=== PATIENT | female | born 1980 | race Two or more races ===

== ENCOUNTER 2018-07-02 12:20 | Observation (INO) | payer SELFPAY ==
[~2018-07-02] VITALS: Ht 157.5 cm; Wt 82.6 kg
[2018-07-02] MEDS ORDERED: DIPHENHYDRAMINE 50MG/ML VIAL IV NR (13:30)
[2018-07-02] MEDS ORDERED: LACTATED RINGERS 1,000 ML IV SCH (13:30)
[2018-07-02 14:58] LABS: BASOPHILS % 0.4 % (0.0-2.0); EOSINOPHILS % 1.1 % (0.0-5.0); HEMATOCRIT. 34.7 % (36.0-48.0); HEMOGLOBIN. 11.6 g/dL (12.0-16.0); LYMPHOCYTES % 18.1 % (20.0-50.0); MEAN CORPUSCULAR VOLUME 86.5 fL (81.0-99.0); MEAN PLATELET VOLUME 9.4 fl (7.4-10.4); MONOCYTES % 6.3 % (2.0-8.0); NEUTROPHILS % 74.1 % (40.0-76.0); PLATELET 218 x1000/uL (130-400); RED BLOOD CELL COUNT 4.02 mill/uL (4.2-5.4); RED CELL DISTRIBUTION WIDTH 13.2 % (11.6-14.6)
[2018-07-02] MEDS ORDERED: PREN1TAB78 MT (15:29)
== END 2018-07-02 16:20 | disposition home or self-care (01) ==
LOC: ER 12:20 → 8 EST LDRP 12:39
PROVIDERS: ADMIT Specialist; ATTEND Specialist
DX: O26.893 Other specified pregnancy related conditions, third trimester (principal); L29.9 Pruritus, unspecified; Z3A.34 34 weeks gestation of pregnancy
CPT/HCPCS: 36415; 80076; 82239; 85025; 96374; 99281; G0378; J1200; 96360; 96361; 96372; J7120

== ENCOUNTER 2018-07-23 02:56 | Inpatient (IN) | payer MEDICAID ==
[~2018-07-23] VITALS: Ht 162.6 cm; Wt 75.7 kg
[~2018-07-23 02:56] MED LIST: PREN1TAB78 MT
[2018-07-23] MEDS ORDERED: LIDOCAINE HCL 1% 20ML VIAL (Pyxis) INJ INFIL SCH (03:45)
[2018-07-23] MEDS ORDERED: NALOXONE HCL 0.4 MG/ML 1ML VIAL IM PRN (03:45)
[2018-07-23] MEDS ORDERED: BUTORPHANOL TARTRATE 2 MG/ML VIAL IV PRN (03:45)
[2018-07-23] MEDS ORDERED: METHYLERGONOVINE MALEATE 0.2 MG/ML IM PRN ×2 (03:45→16:00)
[2018-07-23] MEDS ORDERED: PENICILLIN G POTASSIUM 5 MMU in DEXT 5% WATER 100 ML IV SCH (04:00)
[2018-07-23] MEDS: LACTATED RINGERS 1,000 ML IV SCH ×2 (04:26→06:00)
[2018-07-23 04:51] LABS: BASOPHILS % 0.5 % (0.0-2.0); EOSINOPHILS % 1.1 % (0.0-5.0); HEMATOCRIT. 35.8 % (36.0-48.0); LYMPHOCYTES % 16.7 % (20.0-50.0); MEAN CORPUSCULAR HEMOGLOBIN 28.8 pg (28.0-32.0); MEAN CORPUSCULAR VOLUME 85.7 fL (81.0-99.0); MONOCYTES % 5.7 % (2.0-8.0); PLATELET 162 x1000/uL (130-400); RED BLOOD CELL COUNT 4.17 mill/uL (4.2-5.4); RED CELL DISTRIBUTION WIDTH 14.1 % (11.6-14.6)
[2018-07-23 04:59] LABS: INR 0.9; PARTIAL THROMBOPLASTIN TIME 25.2 sec (23.4-31.0)
[2018-07-23] MEDS ORDERED: ROPIVACAINE HCL/PF EPIDURAL 200 ML EPI SCH (05:00)
[2018-07-23 05:07] LABS: *AMPHETAMINES SCREEN URINE NEGATIVE (NEGATIVE); *BARBITURATES SCREEN URINE NEGATIVE (NEGATIVE); *BENZODIAZEPINES SCREEN URINE NEGATIVE (NEGATIVE); *COCAINE SCREEN URINE NEGATIVE (NEGATIVE); METHADONE URINE SCREEN NEGATIVE (NEGATIVE)
[2018-07-23 05:08] LABS: CANNABINOID URINE SCREEN NEGATIVE (NEGATIVE); OPIATES URINE SCREEN NEGATIVE (NEGATIVE); PHENCYCLIDINE URINE SCREEN NEGATIVE (NEGATIVE)
[2018-07-23 05:16] LABS: CLARITY URINE CLEAR (CLEAR); COLOR URINE YELLOW (YELLOW); KETONES URINE NEGATIVE (NEGATIVE); LEUKOCYTE ESTERASE URINE 1+ (NEGATIVE); NITRITE URINE NEGATIVE (NEGATIVE); OCCULT BLOOD URINE 2+ (NEGATIVE); PROTEIN URINE NEGATIVE (NEGATIVE); SPECIFIC GRAVITY URINE 1.014 (1.005-1.030)
[2018-07-23 05:29] LABS: PROTHROMBIN TIME 8.8 sec (9.1-11.1)
[2018-07-23 06:45] LABS: HEPATITIS B SURFACE ANTIGEN NEGATIVE
[2018-07-23] MEDS ORDERED: PENICILLIN G POTASSIUM 2.5 MMU in DEXTROSE 5% WATER 50 ML IV SCH (08:00)
[2018-07-23] MEDS: DEXT 5%/LR + PITOCIN 20UNITS/L 1,000 ML IV SCH ×2 (12:49→13:59)
[2018-07-23 14:25] VITALS: BP 143/75
[2018-07-23 14:55] VITALS: BP 130/74
[2018-07-23] MEDS ORDERED: DEXT 5%/LR + PITOCIN 20UNITS/L 1,000 ML IV SCH (16:00)
[2018-07-23] MEDS ORDERED: RHO(D) IMMUNE GLOBULIN 300 MCG/SYR IM PRN (16:00)
[2018-07-23] MEDS ORDERED: LANOLIN OINT 0.25 GM TUBE TOP PRN (16:00)
[2018-07-23] MEDS ORDERED: IBUPROFEN 400MG TABLET PO PRN (16:00)
[2018-07-23] MEDS: IBUPROFEN 800MG TABLET PO PRN ×2 (16:11→23:22)
[2018-07-23 16:33] VITALS: BP 127/72
[2018-07-23 20:00] VITALS: BP 127/64
[2018-07-24 04:00] VITALS: BP 101/51
[2018-07-24 06:28] LABS: BASOPHILS % 0.3 % (0.0-2.0); EOSINOPHILS % 0.6 % (0.0-5.0); HEMATOCRIT. 32.3 % (36.0-48.0); HEMOGLOBIN. 10.8 g/dL (12.0-16.0); LYMPHOCYTES % 9.7 % (20.0-50.0); MEAN CORPUSCULAR HEMOGLOBIN 28.8 pg (28.0-32.0); MEAN CORPUSCULAR VOLUME 86.1 fL (81.0-99.0); MEAN PLATELET VOLUME 9.5 fl (7.4-10.4); MONOCYTES % 3.3 % (2.0-8.0); NEUTROPHILS % 86.1 % (40.0-76.0); PLATELET 152 x1000/uL (130-400); RED BLOOD CELL COUNT 3.75 mill/uL (4.2-5.4); RED CELL DISTRIBUTION WIDTH 14.3 % (11.6-14.6)
[2018-07-24 08:30] VITALS: BP 120/75
[2018-07-24] MEDS ORDERED: PRENATAL VIT/FE FUMARATE/FA TABLET PO SCH (09:00)
[2018-07-24 16:30] VITALS: BP 127/67
[2018-07-24] MEDS ORDERED: DIPHENHYDRAMINE 25MG CAPSULE PO PRN (19:00)
[2018-07-24 19:30] VITALS: BP 123/73
[2018-07-24 23:43] VITALS: BP 111/59
[2018-07-24] MEDS: IBUPROFEN 800MG TABLET PO PRN (23:43)
[2018-07-25 07:36] VITALS: BP 101/55
[2018-07-25] MEDS: IBUPROFEN 800MG TABLET PO PRN (08:57)
== END 2018-07-25 11:35 | disposition home or self-care (01) | DRG 560 ==
LOC: OBSVTOIN 02:56 → 8 EST LDRP 02:56 → 8EST 14:25
PROVIDERS: ADMIT Specialist; ATTEND Specialist
PROC: 10E0XZZ Delivery of Products of Conception, External Approach (ICD-10-PCS; principal; 2018-07-23)
DX: O75.89 Other specified complications of labor and delivery (principal); D62 Acute posthemorrhagic anemia; L29.9 Pruritus, unspecified; O99.02 Anemia complicating childbirth; Z37.0 Single live birth; Z3A.37 37 weeks gestation of pregnancy; Z90.49 Acquired absence of other specified parts of digestive tract
CPT/HCPCS: 36415; 76705; 80076; 80305; 86592; 86703; 86762; 86850; 86886; 86900; 87340; 90384; 99281; J0595; J2540; J2590; J2795; J7060; J7120; A4315

== ENCOUNTER 2018-10-29 10:23 | Emergency (ER) | payer MEDICAID ==
[~2018-10-29] VITALS: Ht 157.5 cm; Wt 58.0 kg
[2018-10-29 11:07] LABS: CLARITY URINE CLOUDY (CLEAR); COLOR URINE YELLOW (YELLOW); KETONES URINE 2+ (NEGATIVE); LEUKOCYTE ESTERASE URINE 3+ (NEGATIVE); NITRITE URINE NEGATIVE (NEGATIVE); OCCULT BLOOD URINE 1+ (NEGATIVE); PH URINE 8.5 (4.5-8.0); PROTEIN URINE 2+ (NEGATIVE); SPECIFIC GRAVITY URINE 1.012 (1.005-1.030)
[2018-10-29] MEDS ORDERED: IBUPROFEN 600MG TABLET PO STA (11:20)
[2018-10-29] MEDS ORDERED: SODIUM CHLORIDE 0.9% 1,000 ML IV ONE (11:20)
[2018-10-29 11:47] LABS: BASOPHILS % 0.4 % (0.0-2.0); HEMATOCRIT. 36.5 % (36.0-48.0); HEMOGLOBIN. 12.3 g/dL (12.0-16.0); LYMPHOCYTES % 8.5 % (20.0-50.0); MEAN CORPUSCULAR VOLUME 83.1 fL (81.0-99.0); MEAN PLATELET VOLUME 8.2 fl (7.4-10.4); MONOCYTES % 6.3 % (2.0-8.0); NEUTROPHILS % 84.8 % (40.0-76.0); PLATELET 253 x1000/uL (130-400); RED BLOOD CELL COUNT 4.39 mill/uL (4.2-5.4); RED CELL DISTRIBUTION WIDTH 15.1 % (11.6-14.6)
[2018-10-29 11:50] LABS: CHLORIDE 101 mEq/L (98-107)
[2018-10-29 15:51] VITALS: BP 121/75
== END 2018-10-29 15:52 | disposition home or self-care (01) ==
LOC: ER 10:23
DX: N39.0 Urinary tract infection, site not specified (principal); R74.8 Abnormal levels of other serum enzymes; Z90.49 Acquired absence of other specified parts of digestive tract
CPT/HCPCS: 36415; 80053; 81003; 81025; 85025; 87077; 87086; 87186; 99283; J7030; Z7610